=== PATIENT | male | born 1950 | race Asian ===

== ENCOUNTER 2017-03-01 12:43 | Inpatient (IN) | payer MEDICARE, OTHER ==
[~2017-03-01] VITALS: Ht 170.2 cm; Wt 82.1 kg
[2017-03-01] MEDS ORDERED: PLEASE ENTER ALLERGIES MC SCH ×2 (13:00)
[2017-03-01] MEDS ORDERED: PLEASE ENTER HEIGHT AND WEIGHT MC SCH (13:00)
[2017-03-01] MEDS ORDERED: MORPHINE SULFATE 4 MG/ML, 1ML IVPush PRN (13:00)
[2017-03-01] MEDS ORDERED: ONDANSETRON 2MG/ML, 2ML IVPush ONE (13:00)
[2017-03-01] MEDS ORDERED: ONDANSETRON 2MG/ML, 2ML ONE ×2 (13:04→13:13)
[2017-03-01] MEDS ORDERED: NS + 40MEQ KCL 1,000 ML IV ONE ×2 (13:11→13:12)
[2017-03-01] MEDS ORDERED: MORPHINE SULFATE 4 MG/ML, 1ML ONE (13:13)
[2017-03-01 13:15] LABS: HEMATOCRIT 45.8 % (39.2-51.8); HEMOGLOBIN 14.5 g/dL (13.7-18.0); WHITE BLOOD COUNT 12.2 x10^3/uL (3.4-10)
[2017-03-01 13:38] LABS: ANISOCYTOSIS 1+; POIKILOCYTOSIS 1+
[2017-03-01] MEDS ORDERED: CLEVIDIPINE 50 ML IV ONE (13:39)
[2017-03-01] MEDS ORDERED: CLEVIDIPINE 50 ML IV PRN (14:00)
[2017-03-01] MEDS ORDERED: PROPOFOL 100 ML IV SCH (14:00)
[2017-03-01 14:15] LABS: ABG COLLECTION SITE LEFT RADIAL; COLLATERAL CIRCULATION TESTING NORMAL
[2017-03-01] MEDS ORDERED: AMLO5TAB4 PO (14:40)
[2017-03-01] MEDS ORDERED: GLUCAGON 1 MG IM PRN (16:00)
[2017-03-01] MEDS ORDERED: LIDOCAINE-MPF 1%, 2ML ENDO PRN (16:00)
[2017-03-01] MEDS ORDERED: LORazepam 2 MG/ML, 1ML IV ONE (16:00)
[2017-03-01] MEDS ORDERED: PHARMACY MAY ADJ FOR RENAL FX MC SCH (16:00)
[2017-03-01] MEDS ORDERED: DEXTROSE 50%, 50ML SYRINGE IVPush PRN (16:00)
[2017-03-01] MEDS ORDERED: SENNOSIDES 8.8 MG/5 ML ORAL SOL NG PRN (16:00)
[2017-03-01] MEDS ORDERED: SENNA/DOCUSATE TABLET NG PRN (16:00)
[2017-03-01 16:19] VITALS: BP 162/94
[2017-03-01] MEDS ORDERED: ETOMIDATE 40 MG/20 ML ONE (16:39)
[2017-03-01] MEDS ORDERED: PROPOFOL 10 MG/ML, 20ML ONE (16:39)
[2017-03-01] MEDS ORDERED: SUCCINYLCHOLINE 20 MG/ML, 10ML ONE (16:39)
[2017-03-01] MEDS: NS + 20MEQ KCL 1,000 ML IV SCH (20:55)
[2017-03-01] MEDS: SODIUM CHLORIDE FLUSH 10ML SYR IVF SCH (20:56)
[2017-03-01] MEDS: PROPOFOL 100 ML IV PRN (20:56)
[2017-03-01] MEDS ORDERED: DOCUSATE 100 MG CAPSULE PO PRN (21:00)
[2017-03-01] MEDS ORDERED: BISACODYL 10 MG SUPP PR PRN (21:00)
[2017-03-01] MEDS ORDERED: LABETALOL 5MG/ML, 20ML ONE (22:38)
[2017-03-01] MEDS ORDERED: LABETALOL 5MG/ML, 20ML IVPush ONE (23:00)
[2017-03-02 04:41] LABS: HEMATOCRIT 43.5 % (39.2-51.8)
[2017-03-02 04:50] LABS: ABG COLLECTION SITE NOT DOCUMENTED
[2017-03-02 04:54] LABS: ASPARTATE AMINO TRANSFERASE 27 U/L (15-37); BLOOD UREA NITROGEN 14 mg/dL (7-18)
[2017-03-02] MEDS: ACETAMINOPHEN 650 MG SUPP PR PRN (09:26)
[2017-03-02] MEDS: PANTOPRAZOLE 40 MG IV IV SCH (09:28)
[2017-03-02] MEDS: SODIUM CHLORIDE FLUSH 10ML SYR IVF SCH ×2 (09:28→20:17)
[2017-03-02] MEDS: NS + 20MEQ KCL 1,000 ML IV SCH ×2 (09:29→17:59)
[2017-03-02 12:54] LABS: HEMATOCRIT 41.8 % (39.2-51.8); HEMOGLOBIN 13.2 g/dL (13.7-18.0); WHITE BLOOD COUNT 12.1 x10^3/uL (3.4-10)
[2017-03-02] MEDS: FENTANYL PF 100 MCG/2ML IVPush PRN ×2 (15:43→20:17)
[2017-03-02] MEDS: PROPOFOL 100 ML IV PRN (17:58)
[2017-03-02] MEDS ORDERED: LABETALOL 5MG/ML, 20ML IVPush ONE (22:00)
[2017-03-03 04:34] LABS: ABG COLLECTION SITE RIGHT RADIAL; COLLATERAL CIRCULATION TESTING NORMAL
[2017-03-03 04:41] LABS: BLOOD UREA NITROGEN 16 mg/dL (7-18)
[2017-03-03 04:44] LABS: HEMATOCRIT 42.4 % (39.2-51.8); HEMOGLOBIN 13.1 g/dL (13.7-18.0); WHITE BLOOD COUNT 13.3 x10^3/uL (3.4-10)
[2017-03-03] MEDS: NS + 20MEQ KCL 1,000 ML IV SCH ×2 (04:54→16:05)
[2017-03-03] MEDS: PROPOFOL 100 ML IV PRN (07:47)
[2017-03-03] MEDS: ACETAMINOPHEN 650 MG SUPP PR PRN (09:20)
[2017-03-03] MEDS: PANTOPRAZOLE 40 MG IV IV SCH (09:23)
[2017-03-03] MEDS: SODIUM CHLORIDE FLUSH 10ML SYR IVF SCH ×2 (09:23→23:14)
[2017-03-03] MEDS: LABETALOL 5MG/ML, 20ML IVPush PRN (11:26)
[2017-03-03] MEDS: LEVETIRACETAM 1,000 MG in SODIUM CHLORIDE 0.9% 100 ML IV SCH (17:09)
[2017-03-04] MEDS: NS + 20MEQ KCL 1,000 ML IV SCH ×2 (03:28→15:07)
[2017-03-04] MEDS: LABETALOL 5MG/ML, 20ML IVPush PRN ×4 (04:05→20:53)
[2017-03-04] MEDS: LEVETIRACETAM 1,000 MG in SODIUM CHLORIDE 0.9% 100 ML IV SCH (04:05)
[2017-03-04 04:24] LABS: ABG COLLECTION SITE RIGHT RADIAL; COLLATERAL CIRCULATION TESTING NORMAL
[2017-03-04 04:33] LABS: HEMATOCRIT 41.7 % (39.2-51.8); HEMOGLOBIN 12.9 g/dL (13.7-18.0); WHITE BLOOD COUNT 12.5 x10^3/uL (3.4-10)
[2017-03-04] MEDS: ACETAMINOPHEN 650 MG SUPP PR PRN ×2 (04:38→16:41)
[2017-03-04 07:04] LABS: BLOOD UREA NITROGEN 19 mg/dL (7-18)
[2017-03-04] MEDS: PANTOPRAZOLE 40 MG IV IV SCH (07:36)
[2017-03-04] MEDS: SODIUM CHLORIDE FLUSH 10ML SYR IVF SCH ×2 (07:36→19:47)
[2017-03-04] MEDS: CEFTAZIDIME PMX 2 GM/50ML 50 ML IV SCH ×2 (08:40→16:37)
[2017-03-05] MEDS: CEFTAZIDIME PMX 2 GM/50ML 50 ML IV SCH ×3 (00:20→16:28)
[2017-03-05] MEDS: ACETAMINOPHEN 650 MG SUPP PR PRN ×2 (01:14→13:59)
[2017-03-05] MEDS: NS + 20MEQ KCL 1,000 ML IV SCH ×3 (01:15→13:22)
[2017-03-05 04:09] VITALS: BP 127/66
[2017-03-05 04:23] LABS: ABG COLLECTION SITE RIGHT RADIAL; COLLATERAL CIRCULATION TESTING NORMAL
[2017-03-05 04:29] LABS: HEMATOCRIT 41.3 % (39.2-51.8); HEMOGLOBIN 12.9 g/dL (13.7-18.0); WHITE BLOOD COUNT 11.7 x10^3/uL (3.4-10)
[2017-03-05 04:41] LABS: BLOOD UREA NITROGEN 24 mg/dL (7-18)
[2017-03-05] MEDS: SODIUM CHLORIDE FLUSH 10ML SYR IVF SCH ×2 (08:52→20:30)
[2017-03-05] MEDS: PANTOPRAZOLE 40 MG IV IV SCH (08:53)
[2017-03-05] MEDS: CARVEDILOL 12.5 MG TABLET PO SCH ×2 (10:25→18:00)
[2017-03-05] MEDS: LISINOPRIL 10 MG TABLET PO SCH ×2 (10:25→20:31)
[2017-03-05] MEDS ORDERED: GADOBUTROL 10 MMOL/10 ML PFS ONE (14:35)
[2017-03-05] MEDS: LABETALOL 5MG/ML, 20ML IVPush PRN ×2 (16:19→21:58)
[2017-03-05] MEDS ORDERED: CARVEDILOL 12.5 MG TABLET PO SCH (18:00)
[2017-03-06] MEDS: CEFTAZIDIME PMX 2 GM/50ML 50 ML IV SCH ×3 (01:32→16:44)
[2017-03-06] MEDS: NS + 20MEQ KCL 1,000 ML IV SCH ×2 (01:50→08:24)
[2017-03-06 04:30] LABS: ABG COLLECTION SITE RIGHT RADIAL; COLLATERAL CIRCULATION TESTING NORMAL
[2017-03-06 04:37] LABS: HEMATOCRIT 40.7 % (39.2-51.8); HEMOGLOBIN 12.7 g/dL (13.7-18.0); WHITE BLOOD COUNT 10.8 x10^3/uL (3.4-10)
[2017-03-06 04:44] LABS: BLOOD UREA NITROGEN 23 mg/dL (7-18)
[2017-03-06 05:59] VITALS: BP 136/77
[2017-03-06] MEDS: CARVEDILOL 12.5 MG TABLET PO SCH ×2 (06:12→17:52)
[2017-03-06] MEDS: SODIUM CHLORIDE FLUSH 10ML SYR IVF SCH ×2 (08:44→19:31)
[2017-03-06] MEDS: LISINOPRIL 10 MG TABLET PO SCH ×2 (08:44→21:29)
[2017-03-06] MEDS: PANTOPRAZOLE 40 MG IV IV SCH (08:45)
[2017-03-06] MEDS: LEVETIRACETAM 500 MG in SODIUM CHLORIDE 0.9% 100 ML IV SCH ×2 (11:51→22:59)
[2017-03-06] MEDS: LACTULOSE 20 GM/30 ML UDC NG PRN (16:44)
[2017-03-06] MEDS: ACETAMINOPHEN 650 MG SUPP PR PRN (19:31)
[2017-03-07] MEDS: CEFTAZIDIME PMX 2 GM/50ML 50 ML IV SCH ×3 (00:28→17:14)
[2017-03-07 04:00] VITALS: BP 127/75
[2017-03-07 04:43] LABS: ABG COLLECTION SITE RIGHT BRACHIAL
[2017-03-07 04:45] LABS: HEMOGLOBIN 12.8 g/dL (13.7-18.0); WHITE BLOOD COUNT 11.3 x10^3/uL (3.4-10)
[2017-03-07 04:54] LABS: BLOOD UREA NITROGEN 21 mg/dL (7-18)
[2017-03-07] MEDS: CARVEDILOL 12.5 MG TABLET PO SCH ×2 (05:46→18:02)
[2017-03-07] MEDS: ACETAMINOPHEN 650 MG SUPP PR PRN ×2 (06:28→14:52)
[2017-03-07] MEDS: SODIUM CHLORIDE FLUSH 10ML SYR IVF SCH ×2 (08:38→20:35)
[2017-03-07] MEDS: PANTOPRAZOLE 40 MG IV IV SCH (08:38)
[2017-03-07] MEDS: LISINOPRIL 10 MG TABLET PO SCH ×2 (08:38→20:35)
[2017-03-07] MEDS: LEVETIRACETAM 500 MG in SODIUM CHLORIDE 0.9% 100 ML IV SCH ×2 (11:37→23:37)
[2017-03-08] MEDS: CEFTAZIDIME PMX 2 GM/50ML 50 ML IV SCH ×3 (00:10→16:20)
[2017-03-08] MEDS: ACETAMINOPHEN 650 MG SUPP PR PRN ×3 (01:35→19:42)
[2017-03-08 04:00] VITALS: BP 132/77
[2017-03-08] MEDS: CARVEDILOL 12.5 MG TABLET PO SCH ×2 (05:35→18:35)
[2017-03-08 05:37] LABS: HEMATOCRIT 40.7 % (39.2-51.8); HEMOGLOBIN 12.8 g/dL (13.7-18.0); WHITE BLOOD COUNT 11.2 x10^3/uL (3.4-10)
[2017-03-08 05:49] LABS: ABG COLLECTION SITE LEFT RADIAL; BLOOD UREA NITROGEN 18 mg/dL (7-18); COLLATERAL CIRCULATION TESTING NORMAL
[2017-03-08] MEDS: SODIUM CHLORIDE FLUSH 10ML SYR IVF SCH ×2 (07:51→19:42)
[2017-03-08] MEDS: LISINOPRIL 10 MG TABLET PO SCH ×2 (09:13→22:52)
[2017-03-08] MEDS: PANTOPRAZOLE 40 MG IV IV SCH (09:13)
[2017-03-08] MEDS: PIPERACILLIN/TAZO/PMX 3.375GM 50 ML IV SCH ×3 (12:16→22:54)
[2017-03-08] MEDS: LEVETIRACETAM 500 MG in SODIUM CHLORIDE 0.9% 100 ML IV SCH ×2 (13:12→23:36)
[2017-03-08] MEDS: BISACODYL 10 MG SUPP PR PRN (19:43)
[2017-03-08] MEDS: POLYETHYLENE GLYCOL 17 GM PACKET PO PRN (21:18)
[2017-03-09] MEDS: CEFTAZIDIME PMX 2 GM/50ML 50 ML IV SCH (00:20)
[2017-03-09 04:00] VITALS: BP 138/90
[2017-03-09] MEDS: PIPERACILLIN/TAZO/PMX 3.375GM 50 ML IV SCH ×4 (04:28→22:55)
[2017-03-09 04:55] LABS: BLOOD UREA NITROGEN 22 mg/dL (7-18)
[2017-03-09 05:32] LABS: ABG COLLECTION SITE RIGHT RADIAL
[2017-03-09 05:33] LABS: COLLATERAL CIRCULATION TESTING NORMAL
[2017-03-09 05:36] LABS: HEMOGLOBIN 12.9 g/dL (13.7-18.0); WHITE BLOOD COUNT 9.9 x10^3/uL (3.4-10)
[2017-03-09] MEDS: ACETAMINOPHEN 650 MG SUPP PR PRN ×3 (06:33→21:53)
[2017-03-09] MEDS: CARVEDILOL 12.5 MG TABLET PO SCH ×2 (06:33→18:41)
[2017-03-09] MEDS: SODIUM CHLORIDE FLUSH 10ML SYR IVF SCH ×2 (09:22→20:31)
[2017-03-09] MEDS: LISINOPRIL 10 MG TABLET PO SCH ×2 (09:27→17:34)
[2017-03-09] MEDS: PANTOPRAZOLE 40 MG IV IV SCH (09:27)
[2017-03-09] MEDS: LEVETIRACETAM 500 MG in SODIUM CHLORIDE 0.9% 100 ML IV SCH ×2 (12:16→23:47)
[2017-03-09] MEDS ORDERED: LISINOPRIL 10 MG TABLET PO SCH (14:30)
[2017-03-09] MEDS: BISACODYL 10 MG SUPP PR PRN (14:38)
[2017-03-09] MEDS: POLYETHYLENE GLYCOL 17 GM PACKET PO PRN (14:38)
[2017-03-09] MEDS: LACTULOSE 20 GM/30 ML UDC NG PRN (22:57)
[2017-03-10 00:22] LABS: GAS OBC PASS; GASTRIC OCCULT BLD POSITIVE (NEGATIVE)
[2017-03-10] MEDS: PIPERACILLIN/TAZO/PMX 3.375GM 50 ML IV SCH ×4 (04:36→22:47)
[2017-03-10 04:37] VITALS: BP 128/84
[2017-03-10 04:52] LABS: ABG COLLECTION SITE RIGHT BRACHIAL
[2017-03-10 04:57] LABS: HEMATOCRIT 39.2 % (39.2-51.8); HEMOGLOBIN 12.3 g/dL (13.7-18.0); WHITE BLOOD COUNT 13.8 x10^3/uL (3.4-10)
[2017-03-10 05:04] LABS: BLOOD UREA NITROGEN 21 mg/dL (7-18)
[2017-03-10] MEDS: CARVEDILOL 12.5 MG TABLET PO SCH ×2 (06:35→17:01)
[2017-03-10] MEDS: LISINOPRIL 10 MG TABLET PO SCH ×2 (09:39→20:24)
[2017-03-10] MEDS: SODIUM CHLORIDE FLUSH 10ML SYR IVF SCH ×2 (09:40→20:50)
[2017-03-10] MEDS: PANTOPRAZOLE 40 MG IV IVPush SCH ×2 (09:40→20:50)
[2017-03-10] MEDS: LEVETIRACETAM 500 MG in SODIUM CHLORIDE 0.9% 100 ML IV SCH ×2 (12:11→23:33)
[2017-03-10 16:03] LABS: HEMATOCRIT 41.9 % (39.2-51.8); HEMOGLOBIN 13.2 g/dL (13.7-18.0)
[2017-03-10] MEDS ORDERED: ROCURONIUM 10 MG/ML ONE (18:02)
[2017-03-10] MEDS ORDERED: PROPOFOL 10 MG/ML, 20ML ONE (18:02)
[2017-03-11] MEDS: CARVEDILOL 12.5 MG TABLET PO SCH ×2 (03:21→18:27)
[2017-03-11] MEDS: ACETAMINOPHEN 650 MG SUPP PR PRN ×3 (03:48→23:55)
[2017-03-11] MEDS: BISACODYL 10 MG SUPP PR PRN ×2 (03:49→23:54)
[2017-03-11 04:00] VITALS: BP 128/85
[2017-03-11 04:32] LABS: ABG COLLECTION SITE LEFT RADIAL; COLLATERAL CIRCULATION TESTING NORMAL
[2017-03-11 04:34] LABS: BLOOD UREA NITROGEN 22 mg/dL (7-18)
[2017-03-11 04:42] LABS: HEMATOCRIT 40.8 % (39.2-51.8); HEMOGLOBIN 12.8 g/dL (13.7-18.0); WHITE BLOOD COUNT 13.1 x10^3/uL (3.4-10)
[2017-03-11] MEDS: PIPERACILLIN/TAZO/PMX 3.375GM 50 ML IV SCH (04:55)
[2017-03-11] MEDS: LISINOPRIL 10 MG TABLET PO SCH ×2 (08:43→20:50)
[2017-03-11] MEDS: SODIUM CHLORIDE FLUSH 10ML SYR IVF SCH ×2 (08:43→21:03)
[2017-03-11] MEDS: PANTOPRAZOLE 40 MG IV IVPush SCH ×2 (08:43→21:03)
[2017-03-11] MEDS ORDERED: SODIUM CHLORIDE 0.9%, 500ML IVBOLUS ONE ×2 (11:00→12:00)
[2017-03-11] MEDS: LEVETIRACETAM 500 MG in SODIUM CHLORIDE 0.9% 100 ML IV SCH ×2 (13:07→22:59)
[2017-03-12 04:00] VITALS: BP 99/68
[2017-03-12 04:42] LABS: HEMATOCRIT 34.2 % (39.2-51.8); HEMOGLOBIN 10.6 g/dL (13.7-18.0); WHITE BLOOD COUNT 14.2 x10^3/uL (3.4-10)
[2017-03-12 04:44] LABS: ABG COLLECTION SITE LEFT RADIAL; COLLATERAL CIRCULATION TESTING NORMAL
[2017-03-12 04:49] LABS: BLOOD UREA NITROGEN 49 mg/dL (7-18)
[2017-03-12] MEDS: CARVEDILOL 12.5 MG TABLET PO SCH ×2 (05:23→17:56)
[2017-03-12] MEDS ORDERED: SODIUM CHLORIDE 0.9% 1,000ML IVBOLUS ONE (05:30)
[2017-03-12] MEDS ORDERED: CEFAZOLIN PMX 2GM/50ML 50 ML IVPB ONE (06:00)
[2017-03-12] MEDS: PANTOPRAZOLE 40 MG IV IVPush SCH (09:07)
[2017-03-12] MEDS: SODIUM CHLORIDE 0.9% 1,000 ML IV SCH ×2 (09:08→23:57)
[2017-03-12] MEDS: SODIUM CHLORIDE FLUSH 10ML SYR IVF SCH ×2 (09:08→23:57)
[2017-03-12] MEDS ORDERED: DIGOXIN 0.25 MG/ML, 2ML IVPush ONE ×3 (10:30→18:30)
[2017-03-12] MEDS: LEVETIRACETAM 500 MG in SODIUM CHLORIDE 0.9% 100 ML IV SCH ×2 (11:17→23:56)
[2017-03-12] MEDS: LISINOPRIL 10 MG TABLET PO SCH (11:39)
[2017-03-12] MEDS: PANTOPRAZOLE 80 MG in SODIUM CHLORIDE 0.9% 100 ML IV SCH ×2 (12:10→21:32)
[2017-03-12] MEDS ORDERED: PANTOPRAZOLE 80 MG in SODIUM CHLORIDE 0.9% 50 ML IV ONE (13:00)
[2017-03-12] MEDS ORDERED: MIDAZOLAM 1 MG/ML, 5ML ONE (14:34)
[2017-03-12] MEDS ORDERED: FENTANYL PF 100 MCG/2ML ONE (14:34)
[2017-03-12] MEDS ORDERED: EPINEPHRINE SYRINGE 0.1 MG/ML, 10ML ONE (14:38)
[2017-03-12 16:57] LABS: HEMATOCRIT 33.4 % (39.2-51.8); HEMOGLOBIN 10.6 g/dL (13.7-18.0); WHITE BLOOD COUNT 12.6 x10^3/uL (3.4-10)
[2017-03-12 23:03] LABS: HEMATOCRIT 32.1 % (39.2-51.8); HEMOGLOBIN 10.1 g/dL (13.7-18.0); WHITE BLOOD COUNT 13.5 x10^3/uL (3.4-10)
[2017-03-13 04:45] LABS: ABG COLLECTION SITE RIGHT RADIAL; COLLATERAL CIRCULATION TESTING NORMAL
[2017-03-13 04:47] LABS: HEMATOCRIT 29.8 % (39.2-51.8); HEMOGLOBIN 9.5 g/dL (13.7-18.0); WHITE BLOOD COUNT 11.4 x10^3/uL (3.4-10)
[2017-03-13 04:53] LABS: BLOOD UREA NITROGEN 29 mg/dL (7-18)
[2017-03-13 05:38] VITALS: BP 111/76
[2017-03-13] MEDS: CARVEDILOL 12.5 MG TABLET PO SCH ×2 (06:00→13:13)
[2017-03-13] MEDS: PANTOPRAZOLE 80 MG in SODIUM CHLORIDE 0.9% 100 ML IV SCH (08:47)
[2017-03-13] MEDS: SODIUM CHLORIDE 0.9% 1,000 ML IV SCH ×2 (10:02→20:02)
[2017-03-13] MEDS: SODIUM CHLORIDE FLUSH 10ML SYR IVF SCH ×2 (10:02→21:30)
[2017-03-13] MEDS: LEVETIRACETAM 500 MG in SODIUM CHLORIDE 0.9% 100 ML IV SCH ×2 (12:12→23:04)
[2017-03-13] MEDS: PANTOPRAZOLE 40 MG IV IVPush SCH (13:13)
[2017-03-13 15:19] LABS: HEMATOCRIT 29.9 % (39.2-51.8); HEMOGLOBIN 9.4 g/dL (13.7-18.0); WHITE BLOOD COUNT 11.1 x10^3/uL (3.4-10)
[2017-03-13 22:49] LABS: HEMATOCRIT 29.2 % (39.2-51.8); HEMOGLOBIN 9.2 g/dL (13.7-18.0)
[2017-03-14] MEDS: PANTOPRAZOLE 40 MG IV IVPush SCH ×3 (00:26→23:42)
[2017-03-14 04:15] LABS: ABG COLLECTION SITE RIGHT RADIAL; COLLATERAL CIRCULATION TESTING NORMAL
[2017-03-14 04:17] LABS: HEMATOCRIT 28.3 % (39.2-51.8); WHITE BLOOD COUNT 10.1 x10^3/uL (3.4-10)
[2017-03-14 04:26] VITALS: BP 130/88
[2017-03-14 04:27] LABS: BLOOD UREA NITROGEN 19 mg/dL (7-18)
[2017-03-14] MEDS: SODIUM CHLORIDE 0.9% 1,000 ML IV SCH ×2 (05:53→16:36)
[2017-03-14] MEDS: CARVEDILOL 12.5 MG TABLET PO SCH ×2 (05:53→18:00)
[2017-03-14] MEDS: SODIUM CHLORIDE FLUSH 10ML SYR IVF SCH ×2 (09:26→20:24)
[2017-03-14] MEDS: LEVETIRACETAM 500 MG in SODIUM CHLORIDE 0.9% 100 ML IV SCH ×2 (11:03→23:09)
[2017-03-14] MEDS: LABETALOL 5MG/ML, 20ML IVPush PRN (13:36)
[2017-03-14] MEDS ORDERED: TPN PER PHARMACY MC PRN (16:00)
[2017-03-14 16:21] LABS: HEMATOCRIT 29.9 % (39.2-51.8); HEMOGLOBIN 9.1 g/dL (13.7-18.0); WHITE BLOOD COUNT 13.4 x10^3/uL (3.4-10)
[2017-03-14] MEDS ORDERED: DEXTROSE 70% IV SCH (17:00)
[2017-03-14] MEDS ORDERED: [UNRECOGNIZED DRUG - OTHER] IV SCH (17:00)
[2017-03-14] MEDS ORDERED: FAT EMULSIONS IV SCH (17:00)
[2017-03-14] MEDS ORDERED: AMINO ACID 10% IV SCH (17:00)
[2017-03-14] MEDS ORDERED: DEXTROSE 50%, 50ML SYRINGE IVPush PRN (17:00)
[2017-03-14] MEDS ORDERED: DEXTROSE 10% 500 ML IV PRN (17:00)
[2017-03-14] MEDS: INSULIN REGULAR MEDIUM DOSE Q6H X 48HRS SQ-INSULIN SCH (20:32)
[2017-03-14] MEDS: FENTANYL PF 100 MCG/2ML IVPush PRN (21:06)
[2017-03-15] MEDS: INSULIN REGULAR MEDIUM DOSE Q6H X 48HRS SQ-INSULIN SCH ×4 (02:12→20:20)
[2017-03-15 03:14] LABS: HEMATOCRIT 28.1 % (39.2-51.8); HEMOGLOBIN 8.8 g/dL (13.7-18.0); WHITE BLOOD COUNT 11.7 x10^3/uL (3.4-10)
[2017-03-15 03:24] LABS: ASPARTATE AMINO TRANSFERASE 42 U/L (15-37); BLOOD UREA NITROGEN 14 mg/dL (7-18)
[2017-03-15 04:22] LABS: ABG COLLECTION SITE RIGHT RADIAL; COLLATERAL CIRCULATION TESTING NORMAL
[2017-03-15 05:00] VITALS: BP 128/85
[2017-03-15] MEDS: CARVEDILOL 12.5 MG TABLET PO SCH (06:00)
[2017-03-15] MEDS: SODIUM CHLORIDE FLUSH 10ML SYR IVF SCH ×2 (09:27→21:16)
[2017-03-15] MEDS: PANTOPRAZOLE 40 MG IV IVPush SCH ×2 (11:42→23:55)
[2017-03-15] MEDS: LEVETIRACETAM 500 MG in SODIUM CHLORIDE 0.9% 100 ML IV SCH ×2 (11:42→23:26)
[2017-03-15] MEDS: SODIUM CHLORIDE 0.9% 1,000 ML IV SCH (13:16)
[2017-03-15] MEDS ORDERED: FAT EMULSIONS IV SCH (17:00)
[2017-03-15] MEDS ORDERED: AMINO ACID 10% IV SCH (17:00)
[2017-03-15] MEDS ORDERED: [UNRECOGNIZED DRUG - OTHER] IV SCH (17:00)
[2017-03-15] MEDS ORDERED: DEXTROSE 70% IV SCH (17:00)
[2017-03-15] MEDS: ALBUTEROL/IPRATROPIUM 2.5MG/0.5MG, 3 ML INLINE PRN (23:49)
[2017-03-16] MEDS: INSULIN REGULAR MEDIUM DOSE Q6H X 48HRS SQ-INSULIN SCH ×3 (03:25→14:52)
[2017-03-16 03:44] LABS: HEMATOCRIT 31.2 % (39.2-51.8); HEMOGLOBIN 9.8 g/dL (13.7-18.0)
[2017-03-16 03:52] LABS: BLOOD UREA NITROGEN 13 mg/dL (7-18)
[2017-03-16] MEDS: LABETALOL 5MG/ML, 20ML IVPush PRN ×2 (04:06→18:01)
[2017-03-16 05:00] VITALS: BP 156/95
[2017-03-16] MEDS: SODIUM CHLORIDE FLUSH 10ML SYR IVF SCH ×2 (08:14→21:21)
[2017-03-16] MEDS: LEVETIRACETAM 500 MG in SODIUM CHLORIDE 0.9% 100 ML IV SCH ×2 (11:05→23:51)
[2017-03-16] MEDS: PANTOPRAZOLE 40 MG IV IVPush SCH ×2 (11:05→23:51)
[2017-03-16] MEDS ORDERED: AMINO ACID 10% IV SCH (17:00)
[2017-03-16] MEDS ORDERED: DEXTROSE 70% IV SCH (17:00)
[2017-03-16] MEDS ORDERED: [UNRECOGNIZED DRUG - OTHER] IV SCH (17:00)
[2017-03-16] MEDS ORDERED: FAT EMULSIONS IV SCH (17:00)
[2017-03-16] MEDS: FILTER, DISP 1.2 MICRON FOR TPN/PVN IV PRN (17:22)
[2017-03-16] MEDS: ALBUTEROL/IPRATROPIUM 2.5MG/0.5MG, 3 ML INLINE PRN (18:54)
[2017-03-16] MEDS ORDERED: DEXTROSE 10% 500 ML IV PRN (20:00)
[2017-03-16] MEDS ORDERED: DEXTROSE 50%, 50ML SYRINGE IVPush PRN ×2 (20:00)
[2017-03-16] MEDS ORDERED: DOCUSATE 100 MG CAPSULE PO PRN (20:00)
[2017-03-17 04:37] LABS: HEMATOCRIT 33.7 % (39.2-51.8); HEMOGLOBIN 10.5 g/dL (13.7-18.0); WHITE BLOOD COUNT 12.7 x10^3/uL (3.4-10)
[2017-03-17 04:50] LABS: ASPARTATE AMINO TRANSFERASE 35 U/L (15-37); BLOOD UREA NITROGEN 17 mg/dL (7-18)
[2017-03-17 05:00] VITALS: BP 150/103
[2017-03-17] MEDS: LABETALOL 5MG/ML, 20ML IVPush PRN (06:03)
[2017-03-17] MEDS: SODIUM CHLORIDE FLUSH 10ML SYR IVF SCH ×2 (08:31→20:50)
[2017-03-17] MEDS: INSULIN REGULAR MEDIUM DOSE QDAY SQ-INSULIN SCH ×2 (08:32→20:57)
[2017-03-17] MEDS: PANTOPRAZOLE 40 MG IV IVPush SCH ×2 (11:23→23:37)
[2017-03-17] MEDS: LEVETIRACETAM 500 MG in SODIUM CHLORIDE 0.9% 100 ML IV SCH ×2 (11:23→23:37)
[2017-03-17] MEDS: SODIUM CHLORIDE 0.9% 1,000 ML IV SCH (13:40)
[2017-03-17] MEDS: ACETAMINOPHEN 650 MG SUPP PR PRN (13:40)
[2017-03-17] MEDS: FENTANYL PF 100 MCG/2ML IVPush PRN (14:00)
[2017-03-17] MEDS ORDERED: AMPICILLIN/SULBACTAM 3 GM in SODIUM CHLORIDE 0.9% 100 ML IV SCH (15:00)
[2017-03-17] MEDS: PIPERACILLIN/TAZO/PMX 4.5GM 100 ML IV SCH ×2 (15:26→20:51)
[2017-03-17] MEDS ORDERED: FAT EMULSIONS IV SCH (17:00)
[2017-03-17] MEDS ORDERED: AMINO ACID 10% IV SCH (17:00)
[2017-03-17] MEDS ORDERED: DEXTROSE 70% IV SCH (17:00)
[2017-03-17] MEDS ORDERED: [UNRECOGNIZED DRUG - OTHER] IV SCH (17:00)
[2017-03-17] MEDS: FILTER, DISP 1.2 MICRON FOR TPN/PVN IV PRN (17:42)
[2017-03-17] MEDS: ALBUTEROL/IPRATROPIUM 2.5MG/0.5MG, 3 ML INLINE PRN (19:33)
[2017-03-18] MEDS: PIPERACILLIN/TAZO/PMX 4.5GM 100 ML IV SCH ×4 (02:53→20:01)
[2017-03-18 05:00] VITALS: BP 103/73
[2017-03-18 05:05] LABS: HEMATOCRIT 31.5 % (39.2-51.8); HEMOGLOBIN 9.8 g/dL (13.7-18.0); WHITE BLOOD COUNT 16.4 x10^3/uL (3.4-10)
[2017-03-18 05:14] LABS: BLOOD UREA NITROGEN 20 mg/dL (7-18)
[2017-03-18] MEDS: SODIUM CHLORIDE FLUSH 10ML SYR IVF SCH ×2 (09:38→20:01)
[2017-03-18] MEDS: INSULIN REGULAR MEDIUM DOSE QDAY SQ-INSULIN SCH ×2 (09:39→20:07)
[2017-03-18] MEDS: LEVETIRACETAM 500 MG in SODIUM CHLORIDE 0.9% 100 ML IV SCH ×2 (11:33→23:04)
[2017-03-18] MEDS: PANTOPRAZOLE 40 MG IV IVPush SCH ×2 (11:33→23:09)
[2017-03-18] MEDS ORDERED: VANCOMYCIN PER PHARMACY MC PRN (14:30)
[2017-03-18] MEDS ORDERED: PHARMACOKINETIC MONITORING MC PRN (14:30)
[2017-03-18] MEDS ORDERED: VANCOMYCIN 1,500 MG in SODIUM CHLORIDE 0.9% 250 ML IV SCH (15:00)
[2017-03-18] MEDS ORDERED: FAT EMULSIONS IV SCH (17:00)
[2017-03-18] MEDS ORDERED: DEXTROSE 70% IV SCH (17:00)
[2017-03-18] MEDS ORDERED: AMINO ACID 10% IV SCH (17:00)
[2017-03-18] MEDS: FILTER, DISP 1.2 MICRON FOR TPN/PVN IV PRN (17:00)
[2017-03-18] MEDS ORDERED: [UNRECOGNIZED DRUG - OTHER] IV SCH (17:00)
[2017-03-19] MEDS: PIPERACILLIN/TAZO/PMX 4.5GM 100 ML IV SCH ×2 (03:30→09:00)
[2017-03-19 04:47] VITALS: BP 120/70
[2017-03-19 06:15] LABS: HEMATOCRIT 31.4 % (39.2-51.8); HEMOGLOBIN 9.9 g/dL (13.7-18.0); WHITE BLOOD COUNT 10.6 x10^3/uL (3.4-10)
[2017-03-19 06:28] LABS: BLOOD UREA NITROGEN 19 mg/dL (7-18)
[2017-03-19] MEDS: SODIUM CHLORIDE FLUSH 10ML SYR IVF SCH ×2 (09:00→21:24)
[2017-03-19] MEDS: INSULIN REGULAR SQ-INSULIN SCH ×3 (09:03→21:25)
[2017-03-19] MEDS: HUMAN SQ-INSULIN SCH ×3 (09:03→21:25)
[2017-03-19] MEDS: LEVETIRACETAM 500 MG in SODIUM CHLORIDE 0.9% 100 ML IV SCH ×2 (11:41→23:56)
[2017-03-19] MEDS: PANTOPRAZOLE 40 MG IV IVPush SCH ×2 (11:42→23:56)
[2017-03-19] MEDS: MEROPENEM 1 GM in SODIUM CHLORIDE 0.9% 50 ML IV SCH ×2 (13:03→21:20)
[2017-03-19] MEDS ORDERED: AMINO ACID 10% IV SCH (17:00)
[2017-03-19] MEDS ORDERED: DEXTROSE 70% IV SCH (17:00)
[2017-03-19] MEDS ORDERED: FAT EMULSIONS IV SCH (17:00)
[2017-03-19] MEDS ORDERED: [UNRECOGNIZED DRUG - OTHER] IV SCH (17:00)
[2017-03-19] MEDS ORDERED: FILTER, DISP 1.2 MICRON FOR TPN/PVN IV PRN (17:00)
[2017-03-20] MEDS: SODIUM CHLORIDE 0.9% 1,000 ML IV SCH (00:25)
[2017-03-20] MEDS: HUMAN SQ-INSULIN SCH ×4 (03:33→21:26)
[2017-03-20] MEDS: INSULIN REGULAR SQ-INSULIN SCH ×4 (03:33→21:26)
[2017-03-20 04:00] VITALS: BP 122/68
[2017-03-20 04:06] LABS: BLOOD UREA NITROGEN 18 mg/dL (7-18)
[2017-03-20 04:07] LABS: HEMATOCRIT 29.4 % (39.2-51.8); HEMOGLOBIN 9.1 g/dL (13.7-18.0); WHITE BLOOD COUNT 8.2 x10^3/uL (3.4-10)
[2017-03-20] MEDS: MEROPENEM 1 GM in SODIUM CHLORIDE 0.9% 50 ML IV SCH ×3 (05:41→21:26)
[2017-03-20] MEDS: SODIUM CHLORIDE FLUSH 10ML SYR IVF SCH ×2 (09:06→21:26)
[2017-03-20] MEDS: LEVETIRACETAM 500 MG in SODIUM CHLORIDE 0.9% 100 ML IV SCH (11:36)
[2017-03-20] MEDS: PANTOPRAZOLE 40 MG IV IVPush SCH (12:49)
[2017-03-20] MEDS ORDERED: AMINO ACID 10% IV SCH (17:00)
[2017-03-20] MEDS ORDERED: [UNRECOGNIZED DRUG - OTHER] IV SCH (17:00)
[2017-03-20] MEDS ORDERED: FILTER, DISP 1.2 MICRON FOR TPN/PVN IV PRN (17:00)
[2017-03-20] MEDS ORDERED: DEXTROSE 70% IV SCH (17:00)
[2017-03-20] MEDS ORDERED: FAT EMULSIONS IV SCH (17:00)
[2017-03-21] MEDS: PANTOPRAZOLE 40 MG IV IVPush SCH ×2 (00:08→12:30)
[2017-03-21] MEDS: LEVETIRACETAM 500 MG in SODIUM CHLORIDE 0.9% 100 ML IV SCH ×2 (00:08→12:30)
[2017-03-21] MEDS: INSULIN REGULAR SQ-INSULIN SCH ×4 (03:57→19:46)
[2017-03-21] MEDS: HUMAN SQ-INSULIN SCH ×4 (03:57→19:46)
[2017-03-21 04:00] VITALS: BP 117/83
[2017-03-21 04:16] LABS: HEMATOCRIT 29.4 % (39.2-51.8); HEMOGLOBIN 9.1 g/dL (13.7-18.0); WHITE BLOOD COUNT 7.2 x10^3/uL (3.4-10)
[2017-03-21 04:22] LABS: BLOOD UREA NITROGEN 17 mg/dL (7-18)
[2017-03-21] MEDS: MEROPENEM 1 GM in SODIUM CHLORIDE 0.9% 50 ML IV SCH ×2 (05:23→13:21)
[2017-03-21] MEDS: ALBUTEROL/IPRATROPIUM 2.5MG/0.5MG, 3 ML INLINE PRN (07:02)
[2017-03-21] MEDS: SODIUM CHLORIDE FLUSH 10ML SYR IVF SCH ×2 (09:43→19:45)
[2017-03-21] MEDS ORDERED: MEROPENEM 1 GM in SODIUM CHLORIDE 0.9% 100 ML IV SCH (15:00)
[2017-03-21] MEDS ORDERED: FILTER, DISP 1.2 MICRON FOR TPN/PVN IV PRN (17:00)
[2017-03-21] MEDS ORDERED: [UNRECOGNIZED DRUG - OTHER] IV SCH (17:00)
[2017-03-21] MEDS ORDERED: AMINO ACID 10% IV SCH (17:00)
[2017-03-21] MEDS ORDERED: FAT EMULSIONS IV SCH (17:00)
[2017-03-21] MEDS ORDERED: DEXTROSE 70% IV SCH (17:00)
[2017-03-21] MEDS: MEROPENEM 1 GM in SODIUM CHLORIDE 0.9% 100 ML IV SCH (19:44)
[2017-03-22] MEDS: LEVETIRACETAM 500 MG in SODIUM CHLORIDE 0.9% 100 ML IV SCH ×3 (00:04→23:37)
[2017-03-22] MEDS: PANTOPRAZOLE 40 MG IV IVPush SCH ×3 (00:05→23:51)
[2017-03-22] MEDS: INSULIN REGULAR SQ-INSULIN SCH ×4 (03:00→21:00)
[2017-03-22] MEDS: HUMAN SQ-INSULIN SCH ×4 (03:00→21:00)
[2017-03-22 05:09] LABS: HEMATOCRIT 30.1 % (39.2-51.8); HEMOGLOBIN 9.5 g/dL (13.7-18.0); WHITE BLOOD COUNT 7.2 x10^3/uL (3.4-10)
[2017-03-22 05:12] LABS: BLOOD UREA NITROGEN 19 mg/dL (7-18)
[2017-03-22] MEDS: MEROPENEM 1 GM in SODIUM CHLORIDE 0.9% 100 ML IV SCH ×3 (06:49→21:20)
[2017-03-22] MEDS: SODIUM CHLORIDE FLUSH 10ML SYR IVF SCH ×2 (10:06→21:20)
[2017-03-22] MEDS: SODIUM CHLORIDE 0.9% 1,000 ML IV SCH (11:39)
[2017-03-22] MEDS ORDERED: [UNRECOGNIZED DRUG - OTHER] IV SCH (17:00)
[2017-03-22] MEDS ORDERED: AMINO ACID 10% IV SCH (17:00)
[2017-03-22] MEDS ORDERED: DEXTROSE 70% IV SCH (17:00)
[2017-03-22] MEDS ORDERED: FAT EMULSIONS IV SCH (17:00)
[2017-03-23] MEDS: HUMAN SQ-INSULIN SCH ×4 (03:00→21:00)
[2017-03-23] MEDS: INSULIN REGULAR SQ-INSULIN SCH ×4 (03:00→21:00)
[2017-03-23] MEDS: MEROPENEM 1 GM in SODIUM CHLORIDE 0.9% 100 ML IV SCH ×3 (04:38→22:00)
[2017-03-23 05:00] VITALS: BP 111/74
[2017-03-23 05:10] LABS: BLOOD UREA NITROGEN 22 mg/dL (7-18)
[2017-03-23 05:16] LABS: HEMATOCRIT 29.6 % (39.2-51.8); HEMOGLOBIN 9.5 g/dL (13.7-18.0); WHITE BLOOD COUNT 7.3 x10^3/uL (3.4-10)
[2017-03-23] MEDS: SODIUM CHLORIDE FLUSH 10ML SYR IVF SCH ×2 (08:59→22:00)
[2017-03-23] MEDS: PANTOPRAZOLE 40 MG IV IVPush SCH (12:14)
[2017-03-23] MEDS: LEVETIRACETAM 500 MG in SODIUM CHLORIDE 0.9% 100 ML IV SCH (12:15)
[2017-03-23] MEDS ORDERED: FILTER, DISP 1.2 MICRON FOR TPN/PVN IV PRN (16:00)
[2017-03-23] MEDS ORDERED: [UNRECOGNIZED DRUG - OTHER] IV SCH (17:00)
[2017-03-23] MEDS ORDERED: AMINO ACID 10% IV SCH (17:00)
[2017-03-23] MEDS ORDERED: FAT EMULSIONS IV SCH (17:00)
[2017-03-23] MEDS ORDERED: DEXTROSE 70% IV SCH (17:00)
[2017-03-23] MEDS ORDERED: LISINOPRIL 10 MG TABLET PO ONE (18:58)
[2017-03-23] MEDS ORDERED: GLUCAGON 1 MG IM PRN (19:00)
[2017-03-23] MEDS ORDERED: SENNA/DOCUSATE TABLET NG PRN (19:00)
[2017-03-23] MEDS ORDERED: DEXTROSE 50%, 50ML SYRINGE IVPush PRN ×2 (19:00)
[2017-03-23] MEDS ORDERED: DOCUSATE 100 MG CAPSULE PO PRN (19:00)
[2017-03-23] MEDS ORDERED: DEXTROSE 10% 500 ML IV PRN (19:00)
[2017-03-23] MEDS ORDERED: LABETALOL 5MG/ML, 20ML IVPush PRN (19:00)
[2017-03-24] MEDS: PANTOPRAZOLE 40 MG IV IVPush SCH ×3 (00:44→23:33)
[2017-03-24] MEDS: LEVETIRACETAM 500 MG in SODIUM CHLORIDE 0.9% 100 ML IV SCH ×3 (00:44→23:33)
[2017-03-24] MEDS: INSULIN REGULAR SQ-INSULIN SCH ×4 (03:00→20:53)
[2017-03-24] MEDS: HUMAN SQ-INSULIN SCH ×4 (03:00→20:53)
[2017-03-24] MEDS: MEROPENEM 1 GM in SODIUM CHLORIDE 0.9% 100 ML IV SCH ×3 (04:41→20:52)
[2017-03-24 05:00] VITALS: BP 109/68
[2017-03-24 05:09] LABS: HEMATOCRIT 30.6 % (39.2-51.8); HEMOGLOBIN 9.5 g/dL (13.7-18.0); WHITE BLOOD COUNT 7.7 x10^3/uL (3.4-10)
[2017-03-24 05:40] LABS: ASPARTATE AMINO TRANSFERASE 23 U/L (15-37); BLOOD UREA NITROGEN 21 mg/dL (7-18)
[2017-03-24] MEDS: SODIUM CHLORIDE FLUSH 10ML SYR IVF SCH ×2 (12:05→20:53)
[2017-03-24] MEDS ORDERED: FILTER, DISP 1.2 MICRON FOR TPN/PVN IV PRN (16:00)
[2017-03-24] MEDS ORDERED: FAT EMULSIONS IV SCH (17:00)
[2017-03-24] MEDS ORDERED: DEXTROSE 70% IV SCH (17:00)
[2017-03-24] MEDS ORDERED: [UNRECOGNIZED DRUG - OTHER] IV SCH (17:00)
[2017-03-24] MEDS ORDERED: AMINO ACID 10% IV SCH (17:00)
[2017-03-25] MEDS: HUMAN SQ-INSULIN SCH ×4 (03:00→20:50)
[2017-03-25] MEDS: INSULIN REGULAR SQ-INSULIN SCH ×4 (03:00→20:50)
[2017-03-25 04:49] LABS: BLOOD UREA NITROGEN 23 mg/dL (7-18)
[2017-03-25 04:52] LABS: HEMATOCRIT 30.1 % (39.2-51.8); HEMOGLOBIN 9.5 g/dL (13.7-18.0); WHITE BLOOD COUNT 5.8 x10^3/uL (3.4-10)
[2017-03-25 05:00] VITALS: BP 109/74
[2017-03-25] MEDS: MEROPENEM 1 GM in SODIUM CHLORIDE 0.9% 100 ML IV SCH ×3 (05:25→20:50)
[2017-03-25] MEDS: LEVETIRACETAM 500 MG in SODIUM CHLORIDE 0.9% 100 ML IV SCH ×2 (11:03→23:29)
[2017-03-25] MEDS: SODIUM CHLORIDE FLUSH 10ML SYR IVF SCH ×2 (12:38→20:50)
[2017-03-25] MEDS: PANTOPRAZOLE 40 MG IV IVPush SCH ×2 (12:38→23:29)
[2017-03-25] MEDS ORDERED: SODIUM CHLORIDE 0.9%, 500ML IVBOLUS ONE (14:30)
[2017-03-25] MEDS ORDERED: FILTER, DISP 1.2 MICRON FOR TPN/PVN IV PRN (16:00)
[2017-03-25] MEDS ORDERED: AMINO ACID 10% IV SCH ×2 (17:00)
[2017-03-25] MEDS ORDERED: DEXTROSE 70% IV SCH ×2 (17:00)
[2017-03-25] MEDS ORDERED: [UNRECOGNIZED DRUG - OTHER] IV SCH ×2 (17:00)
[2017-03-25] MEDS ORDERED: FAT EMULSIONS IV SCH ×2 (17:00)
[2017-03-26] MEDS: INSULIN REGULAR SQ-INSULIN SCH ×2 (03:00→09:37)
[2017-03-26] MEDS: HUMAN SQ-INSULIN SCH ×2 (03:00→09:37)
[2017-03-26 04:47] LABS: HEMATOCRIT 28.2 % (39.2-51.8); HEMOGLOBIN 8.9 g/dL (13.7-18.0); WHITE BLOOD COUNT 4.8 x10^3/uL (3.4-10)
[2017-03-26 04:58] LABS: BLOOD UREA NITROGEN 21 mg/dL (7-18)
[2017-03-26 05:00] VITALS: BP 107/76
[2017-03-26] MEDS: MEROPENEM 1 GM in SODIUM CHLORIDE 0.9% 100 ML IV SCH ×3 (05:22→21:05)
[2017-03-26] MEDS ORDERED: CEFAZOLIN PMX 1GM/50ML 50 ML IV ONE (09:00)
[2017-03-26] MEDS ORDERED: MIDAZOLAM 1 MG/ML, 5ML ONE (09:17)
[2017-03-26] MEDS: SODIUM CHLORIDE FLUSH 10ML SYR IVF SCH ×2 (09:30→21:06)
[2017-03-26] MEDS ORDERED: SODIUM CHLORIDE 0.9%, 500ML IVBOLUS ONE (11:30)
[2017-03-26] MEDS: PANTOPRAZOLE 40 MG IV IVPush SCH (12:26)
[2017-03-26] MEDS: LEVETIRACETAM 500 MG in SODIUM CHLORIDE 0.9% 100 ML IV SCH ×2 (12:26→23:17)
[2017-03-26] MEDS ORDERED: [UNRECOGNIZED DRUG - OTHER] IV SCH (17:00)
[2017-03-26] MEDS ORDERED: DEXTROSE 70% IV SCH (17:00)
[2017-03-26] MEDS ORDERED: FAT EMULSIONS IV SCH (17:00)
[2017-03-26] MEDS ORDERED: FILTER, DISP 1.2 MICRON FOR TPN/PVN IV PRN (17:00)
[2017-03-26] MEDS ORDERED: AMINO ACID 10% IV SCH (17:00)
[2017-03-26] MEDS: SODIUM CHLORIDE 0.9% 1,000 ML IV SCH (19:14)
[2017-03-27 02:00] VITALS: BP 115/85
[2017-03-27] MEDS: MEROPENEM 1 GM in SODIUM CHLORIDE 0.9% 100 ML IV SCH ×3 (04:30→20:51)
[2017-03-27 06:39] LABS: HEMATOCRIT 29.9 % (39.2-51.8); HEMOGLOBIN 9.4 g/dL (13.7-18.0); WHITE BLOOD COUNT 5.9 x10^3/uL (3.4-10)
[2017-03-27 06:43] LABS: BLOOD UREA NITROGEN 19 mg/dL (7-18)
[2017-03-27] MEDS ORDERED: SODIUM CHLORIDE 0.9% 1,000 ML IV ONE (08:30)
[2017-03-27] MEDS: INSULIN REGULAR, HUMAN 100 UNITS/ML, 3ML MEDIUM DOSE SS SQ-INSULIN SCH (09:00)
[2017-03-27] MEDS: SODIUM CHLORIDE FLUSH 10ML SYR IVF SCH ×2 (10:06→20:52)
[2017-03-27] MEDS: PANTOPRAZOLE 40 MG IV IVPush SCH ×2 (10:06→20:51)
[2017-03-27] MEDS: LEVETIRACETAM 500 MG in SODIUM CHLORIDE 0.9% 100 ML IV SCH ×2 (12:37→23:28)
[2017-03-27] MEDS ORDERED: [UNRECOGNIZED DRUG - OTHER] IV SCH ×2 (17:00)
[2017-03-27] MEDS ORDERED: AMINO ACID 10% IV SCH ×2 (17:00)
[2017-03-27] MEDS ORDERED: FAT EMULSIONS IV SCH ×2 (17:00)
[2017-03-27] MEDS ORDERED: DEXTROSE 70% IV SCH ×2 (17:00)
[2017-03-28 04:00] VITALS: BP 126/89
[2017-03-28] MEDS: MEROPENEM 1 GM in SODIUM CHLORIDE 0.9% 100 ML IV SCH (04:55)
[2017-03-28 07:45] LABS: HEMATOCRIT 30.3 % (39.2-51.8); HEMOGLOBIN 9.6 g/dL (13.7-18.0); WHITE BLOOD COUNT 6.9 x10^3/uL (3.4-10)
[2017-03-28 07:54] LABS: BLOOD UREA NITROGEN 22 mg/dL (7-18)
[2017-03-28] MEDS: INSULIN REGULAR, HUMAN 100 UNITS/ML, 3ML MEDIUM DOSE SS SQ-INSULIN SCH (08:36)
[2017-03-28] MEDS: SODIUM CHLORIDE FLUSH 10ML SYR IVF SCH ×2 (09:05→21:15)
[2017-03-28] MEDS: PANTOPRAZOLE 40 MG IV IVPush SCH ×2 (09:12→21:14)
[2017-03-28] MEDS: LEVETIRACETAM 500 MG in SODIUM CHLORIDE 0.9% 100 ML IV SCH ×2 (11:47→23:14)
[2017-03-29 04:00] VITALS: BP 112/84
[2017-03-29 04:31] LABS: HEMATOCRIT 31.3 % (39.2-51.8); HEMOGLOBIN 9.9 g/dL (13.7-18.0); WHITE BLOOD COUNT 8.4 x10^3/uL (3.4-10)
[2017-03-29 04:42] LABS: BLOOD UREA NITROGEN 25 mg/dL (7-18)
[2017-03-29] MEDS: SODIUM CHLORIDE FLUSH 10ML SYR IVF SCH ×2 (09:44→20:10)
[2017-03-29] MEDS: PANTOPRAZOLE 40 MG IV IVPush SCH ×2 (09:44→21:19)
[2017-03-29] MEDS: LEVETIRACETAM 500 MG in SODIUM CHLORIDE 0.9% 100 ML IV SCH ×2 (11:03→23:35)
[2017-03-29] MEDS ORDERED: OMNIPAQUE 350 MG/ML, 100ML BOTTLE ONE (12:32)
[2017-03-29] MEDS ORDERED: SODIUM CHLORIDE 0.9%, 500ML IVBOLUS ONE ×2 (17:30→19:00)
[2017-03-29] MEDS ORDERED: SODIUM CHLORIDE 0.9% 1,000ML IVBOLUS ONE (20:30)
[2017-03-29] MEDS: SODIUM CHLORIDE 0.9% 1,000 ML IV SCH (23:39)
[2017-03-30] MEDS ORDERED: SODIUM CHLORIDE 0.9%, 500ML IVBOLUS ONE
[2017-03-30] MEDS ORDERED: SODIUM CHLORIDE 0.9% 2,000 ML IV SCH
[2017-03-30 04:00] VITALS: BP 112/75
[2017-03-30 04:42] LABS: BLOOD UREA NITROGEN 23 mg/dL (7-18)
[2017-03-30 04:46] LABS: HEMATOCRIT 25.8 % (39.2-51.8); HEMOGLOBIN 8.2 g/dL (13.7-18.0)
[2017-03-30] MEDS: SODIUM CHLORIDE FLUSH 10ML SYR IVF SCH ×2 (09:47→22:07)
[2017-03-30] MEDS: PANTOPRAZOLE 40 MG IV IVPush SCH ×2 (09:47→22:07)
[2017-03-30] MEDS: NYSTATIN 500,000 UNITS/5 ML UDC PO SCH ×3 (11:04→22:07)
[2017-03-30] MEDS: LEVETIRACETAM 500 MG in SODIUM CHLORIDE 0.9% 100 ML IV SCH ×2 (11:04→23:26)
[2017-03-30] MEDS: SODIUM CHLORIDE 0.9% 1,000 ML IV SCH ×2 (14:34→23:27)
[2017-03-30] MEDS ORDERED: POLYETHYLENE GLYCOL 17 GM PACKET PO PRN (15:00)
[2017-03-30] MEDS ORDERED: GLUCAGON 1 MG IM PRN (15:00)
[2017-03-30] MEDS ORDERED: ALBUTEROL/IPRATROPIUM 2.5MG/0.5MG, 3 ML INLINE PRN (15:00)
[2017-03-30] MEDS ORDERED: LABETALOL 5MG/ML, 20ML IVPush PRN (15:00)
[2017-03-30] MEDS ORDERED: SENNOSIDES 8.8 MG/5 ML ORAL SOL NG PRN (15:00)
[2017-03-30] MEDS ORDERED: ACETAMINOPHEN 650 MG SUPP PR PRN (15:00)
[2017-03-30] MEDS ORDERED: LACTULOSE 20 GM/30 ML UDC NG PRN (15:00)
[2017-03-30] MEDS ORDERED: LIDOCAINE-MPF 1%, 2ML ENDO PRN (15:00)
[2017-03-30] MEDS ORDERED: SODIUM CHLORIDE 0.9% 1,000 ML IV SCH (15:00)
[2017-03-30] MEDS ORDERED: PHARMACY MAY ADJ FOR RENAL FX MC SCH (15:00)
[2017-03-30] MEDS ORDERED: DOCUSATE 100 MG CAPSULE PO PRN (15:00)
[2017-03-30] MEDS ORDERED: BISACODYL 10 MG SUPP PR PRN ×2 (15:00)
[2017-03-30] MEDS ORDERED: FENTANYL PF 100 MCG/2ML IVPush PRN (15:00)
[2017-03-31 04:48] VITALS: BP 134/85
[2017-03-31 05:22] LABS: HEMATOCRIT 26.8 % (39.2-51.8); HEMOGLOBIN 8.4 g/dL (13.7-18.0); WHITE BLOOD COUNT 4.4 x10^3/uL (3.4-10)
[2017-03-31 05:23] LABS: BLOOD UREA NITROGEN 17 mg/dL (7-18)
[2017-03-31] MEDS: NYSTATIN 500,000 UNITS/5 ML UDC PO SCH ×4 (06:23→20:52)
[2017-03-31] MEDS: PANTOPRAZOLE 40 MG IV IVPush SCH ×2 (08:58→20:52)
[2017-03-31] MEDS: SODIUM CHLORIDE FLUSH 10ML SYR IVF SCH ×2 (08:58→20:52)
[2017-03-31] MEDS: LEVETIRACETAM 500 MG in SODIUM CHLORIDE 0.9% 100 ML IV SCH (11:08)
[2017-03-31] MEDS ORDERED: POTASSIUM CHLORIDE 20 MEQ TAB.ER.PRT PO ONE (21:00)
[2017-04-01] MEDS: LEVETIRACETAM 500 MG in SODIUM CHLORIDE 0.9% 100 ML IV SCH ×3 (00:53→23:31)
[2017-04-01 04:00] VITALS: BP 112/80
[2017-04-01 04:36] LABS: HEMATOCRIT 27.9 % (39.2-51.8); HEMOGLOBIN 8.9 g/dL (13.7-18.0); WHITE BLOOD COUNT 4.9 x10^3/uL (3.4-10)
[2017-04-01 04:51] LABS: BLOOD UREA NITROGEN 15 mg/dL (7-18)
[2017-04-01] MEDS: NYSTATIN 500,000 UNITS/5 ML UDC PO SCH ×4 (06:16→21:16)
[2017-04-01] MEDS: SODIUM CHLORIDE FLUSH 10ML SYR IVF SCH ×2 (09:23→21:16)
[2017-04-01] MEDS: PANTOPRAZOLE 40 MG IV IVPush SCH ×2 (09:23→21:16)
[2017-04-02 04:45] VITALS: BP 118/86
[2017-04-02 05:40] LABS: WHITE BLOOD COUNT 5.5 x10^3/uL (3.4-10)
[2017-04-02] MEDS: NYSTATIN 500,000 UNITS/5 ML UDC PO SCH ×4 (05:41→21:43)
[2017-04-02 05:52] LABS: BLOOD UREA NITROGEN 15 mg/dL (7-18)
[2017-04-02] MEDS: PANTOPRAZOLE 40 MG IV IVPush SCH ×2 (07:27→21:43)
[2017-04-02] MEDS: SODIUM CHLORIDE FLUSH 10ML SYR IVF SCH ×2 (07:27→21:43)
[2017-04-02] MEDS: LEVETIRACETAM 500 MG in SODIUM CHLORIDE 0.9% 100 ML IV SCH ×2 (10:53→23:35)
[2017-04-03 04:05] VITALS: BP 118/82
[2017-04-03 04:38] LABS: HEMATOCRIT 32.3 % (39.2-51.8); HEMOGLOBIN 10.3 g/dL (13.7-18.0); WHITE BLOOD COUNT 5.1 x10^3/uL (3.4-10)
[2017-04-03 04:44] LABS: BLOOD UREA NITROGEN 18 mg/dL (7-18)
[2017-04-03] MEDS: NYSTATIN 500,000 UNITS/5 ML UDC PO SCH ×4 (06:01→20:51)
[2017-04-03] MEDS: SODIUM CHLORIDE FLUSH 10ML SYR IVF SCH ×2 (08:25→20:51)
[2017-04-03] MEDS: PANTOPRAZOLE 40 MG IV IVPush SCH ×2 (08:25→20:51)
[2017-04-03] MEDS: ALBUTEROL SULFATE 2.5 MG/3 ML NPPB SCH ×3 (11:00→18:53)
[2017-04-03] MEDS: LEVETIRACETAM 500 MG in SODIUM CHLORIDE 0.9% 100 ML IV SCH ×2 (11:11→23:34)
[2017-04-03 13:58] VITALS: BP 102/70
[2017-04-03 20:42] VITALS: BP 97/63
[2017-04-04 01:21] VITALS: BP 102/69
[2017-04-04 04:07] LABS: HEMATOCRIT 29.6 % (39.2-51.8); HEMOGLOBIN 9.3 g/dL (13.7-18.0); WHITE BLOOD COUNT 4.8 x10^3/uL (3.4-10)
[2017-04-04 04:13] LABS: BLOOD UREA NITROGEN 21 mg/dL (7-18)
[2017-04-04] MEDS: NYSTATIN 500,000 UNITS/5 ML UDC PO SCH ×4 (06:02→20:51)
[2017-04-04] MEDS: ALBUTEROL SULFATE 2.5 MG/3 ML NPPB SCH ×4 (06:49→21:45)
[2017-04-04 07:28] VITALS: BP 100/65
[2017-04-04] MEDS: PANTOPRAZOLE 40 MG IV IVPush SCH ×2 (09:28→20:51)
[2017-04-04] MEDS: SODIUM CHLORIDE FLUSH 10ML SYR IVF SCH ×2 (09:29→20:51)
[2017-04-04] MEDS: LEVETIRACETAM 500 MG in SODIUM CHLORIDE 0.9% 100 ML IV SCH ×2 (11:28→22:47)
[2017-04-04 15:04] VITALS: BP 106/69
[2017-04-04 19:50] VITALS: BP 93/60
[2017-04-05 01:47] VITALS: BP 124/86
[2017-04-05] MEDS: NYSTATIN 500,000 UNITS/5 ML UDC PO SCH ×4 (05:23→21:50)
[2017-04-05 06:31] LABS: HEMATOCRIT 30.8 % (39.2-51.8); HEMOGLOBIN 9.5 g/dL (13.7-18.0); WHITE BLOOD COUNT 5.7 x10^3/uL (3.4-10)
[2017-04-05 06:43] LABS: BLOOD UREA NITROGEN 22 mg/dL (7-18)
[2017-04-05] MEDS: ALBUTEROL SULFATE 2.5 MG/3 ML NPPB SCH ×4 (07:10→21:15)
[2017-04-05 07:26] VITALS: BP 121/86
[2017-04-05] MEDS: PANTOPRAZOLE 40 MG IV IVPush SCH ×2 (08:33→21:50)
[2017-04-05] MEDS: SODIUM CHLORIDE FLUSH 10ML SYR IVF SCH ×2 (08:33→21:50)
[2017-04-05] MEDS: LEVETIRACETAM 500 MG in SODIUM CHLORIDE 0.9% 100 ML IV SCH (10:52)
[2017-04-05 13:21] VITALS: BP 125/85
[2017-04-05 20:00] VITALS: BP 127/86
[2017-04-06] MEDS: LEVETIRACETAM 500 MG in SODIUM CHLORIDE 0.9% 100 ML IV SCH ×3 (00:13→23:03)
[2017-04-06 04:25] VITALS: BP 131/83
[2017-04-06 04:51] LABS: HEMATOCRIT 34.5 % (39.2-51.8); HEMOGLOBIN 10.9 g/dL (13.7-18.0); WHITE BLOOD COUNT 5.6 x10^3/uL (3.4-10)
[2017-04-06 05:02] LABS: BLOOD UREA NITROGEN 20 mg/dL (7-18)
[2017-04-06] MEDS: NYSTATIN 500,000 UNITS/5 ML UDC PO SCH ×4 (05:59→21:06)
[2017-04-06 09:13] VITALS: BP 118/80
[2017-04-06] MEDS: PANTOPRAZOLE 40 MG IV IVPush SCH ×2 (09:56→21:06)
[2017-04-06] MEDS: SODIUM CHLORIDE FLUSH 10ML SYR IVF SCH ×2 (09:56→21:06)
[2017-04-06] MEDS ORDERED: GLUCAGON 1 MG IM PRN (15:00)
[2017-04-06] MEDS ORDERED: LACTULOSE 20 GM/30 ML UDC NG PRN (15:00)
[2017-04-06] MEDS ORDERED: ACETAMINOPHEN 650 MG SUPP PR PRN (15:00)
[2017-04-06] MEDS ORDERED: POLYETHYLENE GLYCOL 17 GM PACKET PO PRN (15:00)
[2017-04-06] MEDS ORDERED: BISACODYL 10 MG SUPP PR PRN ×2 (15:00)
[2017-04-06] MEDS ORDERED: DOCUSATE 100 MG CAPSULE PO PRN (15:00)
[2017-04-06] MEDS ORDERED: DEXTROSE 50%, 50ML SYRINGE IVPush PRN (15:00)
[2017-04-06] MEDS ORDERED: LABETALOL 5MG/ML, 20ML IVPush PRN (15:00)
[2017-04-06] MEDS ORDERED: PHARMACY MAY ADJ FOR RENAL FX MC SCH (15:00)
[2017-04-06 15:03] VITALS: BP 118/81
[2017-04-06 19:37] VITALS: BP 129/86
[2017-04-07 01:37] VITALS: BP 112/72
[2017-04-07 05:00] LABS: HEMATOCRIT 29.6 % (39.2-51.8); HEMOGLOBIN 9.3 g/dL (13.7-18.0); WHITE BLOOD COUNT 5.6 x10^3/uL (3.4-10)
[2017-04-07 05:04] LABS: BLOOD UREA NITROGEN 22 mg/dL (7-18)
[2017-04-07] MEDS: NYSTATIN 500,000 UNITS/5 ML UDC PO SCH ×4 (05:25→21:52)
[2017-04-07 08:08] VITALS: BP 114/76
[2017-04-07] MEDS: PANTOPRAZOLE 40 MG IV IVPush SCH ×2 (09:39→21:52)
[2017-04-07] MEDS: SODIUM CHLORIDE FLUSH 10ML SYR IVF SCH ×2 (09:39→21:52)
[2017-04-07] MEDS: LEVETIRACETAM 500 MG in SODIUM CHLORIDE 0.9% 100 ML IV SCH ×2 (10:53→23:42)
[2017-04-07 14:57] VITALS: BP 118/83
[2017-04-07 19:45] VITALS: BP 114/77
[2017-04-08 03:23] VITALS: BP 110/75
[2017-04-08 04:17] LABS: HEMOGLOBIN 9.8 g/dL (13.7-18.0); WHITE BLOOD COUNT 6.3 x10^3/uL (3.4-10)
[2017-04-08 04:27] LABS: BLOOD UREA NITROGEN 23 mg/dL (7-18)
[2017-04-08] MEDS: NYSTATIN 500,000 UNITS/5 ML UDC PO SCH ×4 (05:47→21:54)
[2017-04-08 08:05] VITALS: BP 120/83
[2017-04-08] MEDS: PANTOPRAZOLE 40 MG IV IVPush SCH ×2 (08:55→21:54)
[2017-04-08] MEDS: SODIUM CHLORIDE FLUSH 10ML SYR IVF SCH ×2 (08:55→21:55)
[2017-04-08] MEDS: LEVETIRACETAM 500 MG in SODIUM CHLORIDE 0.9% 100 ML IV SCH ×2 (11:16→23:34)
[2017-04-08 12:40] VITALS: BP 125/84
[2017-04-08 20:55] VITALS: BP 114/79
[2017-04-09 01:45] VITALS: BP 127/86
[2017-04-09 03:15] LABS: HEMATOCRIT 30.8 % (39.2-51.8); HEMOGLOBIN 9.7 g/dL (13.7-18.0); WHITE BLOOD COUNT 7.4 x10^3/uL (3.4-10)
[2017-04-09 03:16] LABS: BLOOD UREA NITROGEN 20 mg/dL (7-18)
[2017-04-09] MEDS: NYSTATIN 500,000 UNITS/5 ML UDC PO SCH ×2 (06:16→11:00)
[2017-04-09 07:49] VITALS: BP 123/84
[2017-04-09] MEDS: SODIUM CHLORIDE FLUSH 10ML SYR IVF SCH ×2 (08:20→23:25)
[2017-04-09] MEDS: PANTOPRAZOLE 40 MG IV IVPush SCH (08:21)
[2017-04-09] MEDS: LEVETIRACETAM 500 MG in SODIUM CHLORIDE 0.9% 100 ML IV SCH ×2 (12:33→23:25)
[2017-04-10] MEDS: LEVETIRACETAM 500 MG in SODIUM CHLORIDE 0.9% 100 ML IV SCH ×2 (10:57→23:15)
[2017-04-10] MEDS: SODIUM CHLORIDE FLUSH 10ML SYR IVF SCH ×2 (10:57→23:15)
[2017-04-10] MEDS: MORPHINE SULFATE 4 MG/ML, 1ML IVPush PRN ×3 (12:36→23:15)
[2017-04-10] MEDS: LORazepam 2 MG/ML, 1ML IVPush PRN (18:35)
[2017-04-11] MEDS: MORPHINE SULFATE 4 MG/ML, 1ML IVPush PRN (02:57)
[2017-04-11] MEDS: LORazepam 2 MG/ML, 1ML IVPush PRN (06:15)
[2017-04-11] MEDS: SODIUM CHLORIDE FLUSH 10ML SYR IVF SCH ×2 (08:07→23:19)
[2017-04-11] MEDS: LEVETIRACETAM 500 MG in SODIUM CHLORIDE 0.9% 100 ML IV SCH ×2 (11:55→23:19)
[2017-04-11] MEDS: SCOPOLAMINE PATCH, 1.5MG PATCH.TD72 TD PRN (13:30)
[2017-04-12] MEDS: MORPHINE SULFATE 4 MG/ML, 1ML IVPush PRN ×3 (03:09→22:04)
[2017-04-12] MEDS: LORazepam 2 MG/ML, 1ML IVPush PRN (07:37)
[2017-04-12] MEDS: SODIUM CHLORIDE FLUSH 10ML SYR IVF SCH ×2 (07:38→22:05)
[2017-04-12] MEDS: LEVETIRACETAM 500 MG in SODIUM CHLORIDE 0.9% 100 ML IV SCH (11:39)
[2017-04-13] MEDS: LEVETIRACETAM 500 MG in SODIUM CHLORIDE 0.9% 100 ML IV SCH ×3 (00:06→23:05)
[2017-04-13] MEDS: MORPHINE SULFATE 4 MG/ML, 1ML IVPush PRN ×2 (05:57→17:25)
[2017-04-13] MEDS: SODIUM CHLORIDE FLUSH 10ML SYR IVF SCH ×2 (09:42→21:25)
[2017-04-13] MEDS: LORazepam 2 MG/ML, 1ML IVPush PRN (11:53)
[2017-04-13] MEDS ORDERED: PHARMACY MAY ADJ FOR RENAL FX MC SCH (20:00)
[2017-04-13] MEDS ORDERED: ACETAMINOPHEN 650 MG SUPP PR PRN (20:00)
[2017-04-13] MEDS ORDERED: DOCUSATE 100 MG CAPSULE PO PRN (20:00)
[2017-04-13] MEDS ORDERED: BISACODYL 10 MG SUPP PR PRN ×2 (20:00)
[2017-04-13] MEDS ORDERED: POLYETHYLENE GLYCOL 17 GM PACKET PO PRN (20:00)
[2017-04-14] MEDS: SODIUM CHLORIDE FLUSH 10ML SYR IVF SCH ×2 (10:05→19:38)
[2017-04-14] MEDS: MORPHINE SULFATE 4 MG/ML, 1ML IVPush PRN ×3 (10:05→23:33)
[2017-04-14] MEDS: LEVETIRACETAM 500 MG in SODIUM CHLORIDE 0.9% 100 ML IV SCH ×2 (10:05→22:06)
[2017-04-15] MEDS: MORPHINE SULFATE 4 MG/ML, 1ML IVPush PRN ×4 (04:33→22:08)
[2017-04-15] MEDS: LEVETIRACETAM 500 MG in SODIUM CHLORIDE 0.9% 100 ML IV SCH ×2 (10:49→22:08)
[2017-04-15] MEDS: SODIUM CHLORIDE FLUSH 10ML SYR IVF SCH ×2 (10:49→22:08)
[2017-04-16] MEDS: MORPHINE SULFATE 4 MG/ML, 1ML IVPush PRN ×6 (09:13→22:08)
[2017-04-16] MEDS: SODIUM CHLORIDE FLUSH 10ML SYR IVF SCH ×2 (09:14→21:00)
[2017-04-16] MEDS: LEVETIRACETAM 500 MG in SODIUM CHLORIDE 0.9% 100 ML IV SCH ×2 (11:10→23:25)
[2017-04-16] MEDS: ATROPINE OPHTH SOLN 1%, 5ML BC PRN ×4 (13:25→23:33)
[2017-04-16] MEDS: SCOPOLAMINE PATCH, 1.5MG PATCH.TD72 TD PRN (13:30)
[2017-04-17] MEDS: MORPHINE SULFATE 4 MG/ML, 1ML IVPush PRN ×4 (05:29→18:32)
[2017-04-17] MEDS: ATROPINE OPHTH SOLN 1%, 5ML BC PRN ×6 (05:30→21:34)
[2017-04-17] MEDS: SODIUM CHLORIDE FLUSH 10ML SYR IVF SCH ×2 (08:29→21:00)
[2017-04-17] MEDS: LORazepam 2 MG/ML, 1ML IVPush PRN ×3 (09:54→22:57)
[2017-04-17] MEDS: LEVETIRACETAM 500 MG in SODIUM CHLORIDE 0.9% 100 ML IV SCH ×2 (11:05→22:57)
[2017-04-18] MEDS: ATROPINE OPHTH SOLN 1%, 5ML BC PRN ×2 (03:52→10:49)
[2017-04-18] MEDS: MORPHINE SULFATE 4 MG/ML, 1ML IVPush PRN ×3 (03:52→21:46)
[2017-04-18] MEDS: SODIUM CHLORIDE FLUSH 10ML SYR IVF SCH ×2 (10:48→21:00)
[2017-04-18] MEDS: LEVETIRACETAM 500 MG in SODIUM CHLORIDE 0.9% 100 ML IV SCH ×2 (11:02→21:47)
[2017-04-18] MEDS: LORazepam 2 MG/ML, 1ML IVPush PRN (21:47)
[2017-04-19] MEDS: MORPHINE SULFATE 4 MG/ML, 1ML IVPush PRN ×2 (02:41→21:12)
[2017-04-19] MEDS: LEVETIRACETAM 500 MG in SODIUM CHLORIDE 0.9% 100 ML IV SCH ×2 (10:39→22:31)
[2017-04-19] MEDS: SODIUM CHLORIDE FLUSH 10ML SYR IVF SCH ×2 (10:39→21:10)
[2017-04-19] MEDS: ATROPINE OPHTH SOLN 1%, 5ML BC PRN (21:12)
[2017-04-20] MEDS: MORPHINE SULFATE 4 MG/ML, 1ML IVPush PRN ×5 (03:12→22:02)
[2017-04-20] MEDS: LORazepam 2 MG/ML, 1ML IVPush PRN (06:29)
[2017-04-20] MEDS: SODIUM CHLORIDE FLUSH 10ML SYR IVF SCH (11:10)
[2017-04-20] MEDS: LEVETIRACETAM 500 MG in SODIUM CHLORIDE 0.9% 100 ML IV SCH ×2 (11:10→22:02)
[2017-04-20] MEDS ORDERED: DOCUSATE 100 MG CAPSULE PO PRN (14:30)
[2017-04-20] MEDS ORDERED: BISACODYL 10 MG SUPP PR PRN ×2 (14:30)
[2017-04-20] MEDS ORDERED: ACETAMINOPHEN 650 MG SUPP PR PRN (14:30)
[2017-04-20] MEDS ORDERED: PHARMACY MAY ADJ FOR RENAL FX MC SCH (14:30)
[2017-04-20] MEDS ORDERED: POLYETHYLENE GLYCOL 17 GM PACKET PO PRN (14:30)
[2017-04-21] MEDS: SODIUM CHLORIDE FLUSH 10ML SYR IVF SCH ×3 (01:26→20:59)
[2017-04-21] MEDS: MORPHINE SULFATE 4 MG/ML, 1ML IVPush PRN ×7 (01:26→23:41)
[2017-04-21] MEDS: LEVETIRACETAM 500 MG in SODIUM CHLORIDE 0.9% 100 ML IV SCH ×2 (09:30→20:58)
[2017-04-21] MEDS: SCOPOLAMINE PATCH, 1.5MG PATCH.TD72 TD PRN (09:30)
[2017-04-21] MEDS: ATROPINE OPHTH SOLN 1%, 5ML BC PRN ×2 (13:30→23:48)
[2017-04-21] MEDS: LORazepam 2 MG/ML, 1ML IVPush PRN (17:27)
[2017-04-22] MEDS: MORPHINE SULFATE 4 MG/ML, 1ML IVPush PRN ×6 (03:06→20:39)
[2017-04-22] MEDS: SODIUM CHLORIDE FLUSH 10ML SYR IVF SCH ×2 (09:00→20:39)
[2017-04-22] MEDS: LEVETIRACETAM 500 MG in SODIUM CHLORIDE 0.9% 100 ML IV SCH ×2 (09:21→20:39)
[2017-04-22] MEDS: ATROPINE OPHTH SOLN 1%, 5ML BC PRN (11:45)
[2017-04-23] MEDS: MORPHINE SULFATE 4 MG/ML, 1ML IVPush PRN ×5 (00:28→16:43)
[2017-04-23] MEDS: LEVETIRACETAM 500 MG in SODIUM CHLORIDE 0.9% 100 ML IV SCH ×2 (08:54→19:48)
[2017-04-23] MEDS: SODIUM CHLORIDE FLUSH 10ML SYR IVF SCH ×2 (08:56→19:48)
[2017-04-24] MEDS: MORPHINE SULFATE 4 MG/ML, 1ML IVPush PRN ×4 (07:40→17:16)
[2017-04-24] MEDS: SODIUM CHLORIDE FLUSH 10ML SYR IVF SCH ×2 (10:10→20:06)
[2017-04-24] MEDS: LEVETIRACETAM 500 MG in SODIUM CHLORIDE 0.9% 100 ML IV SCH ×2 (10:10→20:06)
[2017-04-24] MEDS: ATROPINE OPHTH SOLN 1%, 5ML BC PRN ×5 (10:24→18:45)
[2017-04-24] MEDS: LORazepam 2 MG/ML, 1ML IVPush PRN ×2 (12:18→15:48)
[2017-04-25] MEDS: MORPHINE SULFATE 4 MG/ML, 1ML IVPush PRN ×4 (05:22→15:32)
[2017-04-25] MEDS: ATROPINE OPHTH SOLN 1%, 5ML BC PRN (05:22)
[2017-04-25] MEDS: LORazepam 2 MG/ML, 1ML IVPush PRN ×2 (06:28→17:51)
[2017-04-25] MEDS: LEVETIRACETAM 500 MG in SODIUM CHLORIDE 0.9% 100 ML IV SCH ×2 (08:54→19:41)
[2017-04-25] MEDS: SODIUM CHLORIDE FLUSH 10ML SYR IVF SCH ×2 (09:00→19:41)
[2017-04-25] MEDS ORDERED: morphine SULFATE 125 MG in SODIUM CHLORIDE 0.9% 237.5 ML IV PRN (18:30)
[2017-04-26] MEDS: SODIUM CHLORIDE FLUSH 10ML SYR IVF SCH (10:19)
[2017-04-26] MEDS: LEVETIRACETAM 500 MG in SODIUM CHLORIDE 0.9% 100 ML IV SCH (10:19)
== END 2017-04-26 13:25 | disposition expired | DRG 3 ==
LOC: ED 13:18 → EDIP 14:09 → CCU 15:55 → 3NW 04-03 10:46
PROVIDERS: ADMIT Hospitalist; ATTEND Hospitalist
PROC: 0BH17EZ Insertion of Endotracheal Airway into Trachea, Via Natural or Artificial Opening (ICD-10-PCS; principal; 2017-03-01)
PROC: 5A1955Z Respiratory Ventilation, Greater than 96 Consecutive Hours (ICD-10-PCS; 2017-03-02)
PROC: 0T9B70Z Drainage of Bladder with Drainage Device, Via Natural or Artificial Opening (ICD-10-PCS; 2017-03-02)
PROC: 0B110F4 Bypass Trachea to Cutaneous with Tracheostomy Device, Open Approach (ICD-10-PCS; 2017-03-10)
PROC: 0W3P8ZZ Control Bleeding in Gastrointestinal Tract, Via Natural or Artificial Opening Endoscopic (ICD-10-PCS; 2017-03-12)
PROC: 0B928ZZ Drainage of Carina, Via Natural or Artificial Opening Endoscopic (ICD-10-PCS; 2017-03-17)
PROC: 0B938ZZ Drainage of Right Main Bronchus, Via Natural or Artificial Opening Endoscopic (ICD-10-PCS; 2017-03-17)
PROC: 0DH63UZ Insertion of Feeding Device into Stomach, Percutaneous Approach (ICD-10-PCS; 2017-03-26)
PROC: 02HV33Z Insertion of Infusion Device into Superior Vena Cava, Percutaneous Approach (ICD-10-PCS; 2017-04-14)
PROC: B548ZZA Ultrasonography of Superior Vena Cava, Guidance (ICD-10-PCS; 2017-04-14)
DX: I61.3 Nontraumatic intracerebral hemorrhage in brain stem (principal); I63.9 Cerebral infarction, unspecified; G93.40 Encephalopathy, unspecified; Q28.2 Arteriovenous malformation of cerebral vessels; K22.11 Ulcer of esophagus with bleeding; G91.9 Hydrocephalus, unspecified; J96.00 Acute respiratory failure, unspecified whether with hypoxia or hypercapnia; K59.39 Other megacolon; J98.11 Atelectasis; N39.0 Urinary tract infection, site not specified; Z99.11 Dependence on respirator [ventilator] status; J95.02 Infection of tracheostomy stoma; I11.9 Hypertensive heart disease without heart failure; E87.6 Hypokalemia; D72.829 Elevated white blood cell count, unspecified; B96.5 Pseudomonas (aeruginosa) (mallei) (pseudomallei) as the cause of diseases classified elsewhere; G93.89 Other specified disorders of brain; K80.20 Calculus of gallbladder without cholecystitis without obstruction; Z66 Do not resuscitate; Z51.5 Encounter for palliative care; Z79.899 Other long term (current) drug therapy; Z82.49 Family history of ischemic heart disease and other diseases of the circulatory system; Z83.3 Family history of diabetes mellitus; Y33.XXXA Other specified events, undetermined intent, initial encounter; Y93.89 Activity, other specified; Y92.89 Other specified places as the place of occurrence of the external cause; K63.89 Other specified diseases of intestine; Y83.2 Surgical operation with anastomosis, bypass or graft as the cause of abnormal reaction of the patient, or of later complication, without mention of misadventure at the time of the procedure; K25.9 Gastric ulcer, unspecified as acute or chronic, without hemorrhage or perforation
CPT/HCPCS: 31500; 31622; 31624; 36415; 36569; 36600; 70450; 70496; 70553; 71010; 71250; 71275; 74000; 74150; 74176; 76937; 77001; 80047; 80048; 80053; 81001; 82271; 82803; 82805; 82962; 83735; 83930; 83935; 84100; 84134; 84300; 84478; 85014; 85018; 85025; 85027; 85610; 85651; 85730; 86140; 87040; 87070; 87077; 87081; 87086; 87147; 87186; 87205; 93005; 94002; 94003; 94640; 95951; 96374; 99152; 99153; 99292; A9585; B4087; J0610; J0690; J1815; J1953; J2185; J2250; J2405; J2543; J2704; J3010; J3370; J3475; J3480; J7613; J7620; Q9967; C1751; C9113; C9248; J0330; J0713; J2060; J2270; J3420; J7030; J7040; J7050